=== PATIENT | female | born 1985 | race Caucasian/White ===

== ENCOUNTER 2020-04-30 16:20 | Emergency (ER) | payer OTHER ==
[~2020-04-30] VITALS: Ht 157.5 cm; Wt 88.0 kg
[2020-04-30] MEDS ORDERED: IBUPROFEN 600MG TABLET PO STA (19:23)
[2020-04-30] MEDS ORDERED: ONDANSETRON 4MG ODT PO STA (19:23)
[2020-04-30 19:55] LABS: BASOPHILS % 0.4 % (0.0-2.0); EOSINOPHILS % 0.6 % (0.0-5.0); HEMATOCRIT. 37.1 % (36.0-48.0); LYMPHOCYTES % 22.4 % (20.0-50.0); MEAN CORPUSCULAR HEMOGLOBIN 32.9 pg (28.0-32.0); MEAN CORPUSCULAR VOLUME 93.7 fL (81.0-99.0); MEAN PLATELET VOLUME 9.1 fl (7.4-10.4); MONOCYTES % 7.9 % (2.0-8.0); NEUTROPHILS % 68.7 % (40.0-76.0); PLATELET 271 x1000/uL (130-400); RED BLOOD CELL COUNT 3.96 mill/uL (4.2-5.4); RED CELL DISTRIBUTION WIDTH 12.8 % (11.6-14.6)
[2020-04-30 20:04] LABS: CHLORIDE 108 mEq/L (98-107)
[2020-04-30 20:13] LABS: HCG SCREEN NEGATIVE
[2020-04-30 20:19] LABS: CLARITY URINE CLOUDY (CLEAR); COLOR URINE DARK YELLOW (YELLOW); KETONES URINE NEGATIVE (NEGATIVE); LEUKOCYTE ESTERASE URINE TRACE (NEGATIVE); NITRITE URINE NEGATIVE (NEGATIVE); OCCULT BLOOD URINE NEGATIVE (NEGATIVE); PROTEIN URINE NEGATIVE (NEGATIVE); SPECIFIC GRAVITY URINE 1.025 (1.005-1.030)
[2020-04-30] MEDS ORDERED: SODIUM CHLORIDE 0.9% 1,000 ML IV ONE (23:00)
[2020-05-01 05:35] VITALS: BP 102/57
== END 2020-05-01 06:40 | disposition short-term general hospital (02) ==
LOC: ER 16:20
DX: K80.20 Calculus of gallbladder without cholecystitis without obstruction (principal); R79.89 Other specified abnormal findings of blood chemistry
CPT/HCPCS: 36415; 71045; 76700; 80053; 81003; 81025; 83690; 84703; 85025; 93005; 96360; 99285; J7030; Q0162